=== PATIENT | female | born 1960 | race Caucasian/White ===

== ENCOUNTER 2022-12-14 17:52 | Inpatient (IN) | payer BC, OTHER ==
[2022-12-14] MEDS ORDERED: Sodium Chloride 0.9% 1,000 ML IV ONE ×2 (18:11→19:44)
[2022-12-14] MEDS ORDERED: cefTRIAXone 2 GM in Sodium Chloride 0.9% 100 ML IV ONE (19:00)
[2022-12-14 19:03] LABS: ESTIMATED GFR 23 mL/min (>60)
[2022-12-14] MEDS ORDERED: Norepinephrine 4 MG/4 ML SDV ONE (19:05)
[2022-12-14] MEDS ORDERED: Dextrose 5% in Water 250 ML ONE (19:05)
[2022-12-14] MEDS: Norepinephrine 4 MG in Dextrose 5% in Water 246 ML IV SCH ×2 (19:12)
[2022-12-14] MEDS: Sodium Chloride 0.9% 10 ML Syringe FLUSH PRN (19:46)
[2022-12-14 20:41] LABS: CORONAVIRUS COVID-19 NAA NEGATIVE (NEGATIVE)
[2022-12-15] MEDS ORDERED: Morphine 2 MG/ML SYRINGE IVPUSH PRN (00:42)
[2022-12-15] MEDS ORDERED: Albuterol/Ipratropium 3.0-0.5 MG/3 ML Neb Soln NEB PRN (00:42)
[2022-12-15] MEDS ORDERED: Ondansetron 4 MG/2 ML SDV IV PRN (00:42)
[2022-12-15] MEDS: Norepinephrine 4 MG in Dextrose 5% in Water 246 ML IV SCH ×4 (01:06→08:18)
[2022-12-15] MEDS: Heparin Sodium 5,000 Units/ML Vial SUBCUT SCH ×3 (01:11→18:56)
[2022-12-15] MEDS: Sodium Chloride 0.9% 1,000 ML IV SCH ×2 (02:24→14:46)
[2022-12-15] MEDS: Insulin Lispro 100 Unit/ML 3 ML KwikPen SUBCUT SCH ×6 (02:31→23:46)
[2022-12-15] MEDS: oxyCODONE 5 MG Tab PO PRN ×2 (04:50→20:43)
[2022-12-15 09:15] LABS: HEMOGLOBIN A1C 5.8 %
[2022-12-15] MEDS: Cyclobenzaprine 10 MG Tab PO SCH ×2 (14:45→20:43)
[2022-12-15] MEDS ORDERED: CLONAZEPAM 0.25 MG PO PRN (14:56)
[2022-12-15] MEDS: cefTRIAXone 2 GM in Sodium Chloride 0.9% 100 ML IV SCH (20:43)
[2022-12-15] MEDS: Dextrose 5%-0.45% NaCl 1,000 ML IV SCH (20:44)
[2022-12-16] MEDS: Heparin Sodium 5,000 Units/ML Vial SUBCUT SCH ×2 (02:17→10:30)
[2022-12-16] MEDS: Dextrose 5%-0.45% NaCl 1,000 ML IV SCH ×2 (09:16→23:17)
[2022-12-16] MEDS: Cyclobenzaprine 10 MG Tab PO SCH ×3 (09:16→20:39)
[2022-12-16] MEDS: Insulin Lispro 100 Unit/ML 3 ML KwikPen SUBCUT SCH ×4 (09:27→20:43)
[2022-12-16] MEDS: oxyCODONE 5 MG Tab PO PRN (09:44)
[2022-12-16] MEDS ORDERED: LORazepam 2 MG/ML SDV IVPUSH ONE (10:46)
[2022-12-16] MEDS: cefTRIAXone 2 GM in Sodium Chloride 0.9% 100 ML IV SCH (20:40)
[2022-12-17] MEDS: oxyCODONE 5 MG Tab PO PRN ×2 (06:30→12:30)
[2022-12-17] MEDS ORDERED: Piperacillin/Tazobactam 4.5 GM in Sodium Chloride 0.9% 100 ML IV ONE (07:00)
[2022-12-17] MEDS: Cyclobenzaprine 10 MG Tab PO SCH ×3 (08:16→21:18)
[2022-12-17] MEDS: Insulin Lispro 100 Unit/ML 3 ML KwikPen SUBCUT SCH ×4 (08:25→21:18)
[2022-12-17] MEDS ORDERED: ClonazePAM 0.5 MG Tab PO PRN (08:28)
[2022-12-17] MEDS: Meropenem 500 MG in Sodium Chloride 0.9% 100 ML IV SCH ×3 (08:33→21:23)
[2022-12-17] MEDS: metFORMIN 500 MG Tab PO SCH ×2 (08:42→18:42)
[2022-12-17] MEDS: DULoxetine 30 MG Cap PO SCH (09:19)
[2022-12-17] MEDS: Dextrose 5%-0.45% NaCl 1,000 ML IV SCH ×2 (11:37→22:38)
[2022-12-17] MEDS ORDERED: LORazepam 2 MG/ML SDV ONE (12:45)
[2022-12-17] MEDS ORDERED: LORazepam 2 MG/ML SDV IVPUSH ONE (13:00)
[2022-12-17] MEDS ORDERED: Piperacillin/Tazobactam 4.5 GM in Sodium Chloride 0.9% 100 ML IV SCH (13:00)
[2022-12-18] MEDS: Meropenem 500 MG in Sodium Chloride 0.9% 100 ML IV SCH ×4 (02:59→20:01)
[2022-12-18] MEDS: metFORMIN 500 MG Tab PO SCH ×2 (06:27→17:23)
[2022-12-18] MEDS: Insulin Lispro 100 Unit/ML 3 ML KwikPen SUBCUT SCH ×4 (07:31→20:21)
[2022-12-18] MEDS: Cyclobenzaprine 10 MG Tab PO SCH ×3 (08:21→20:02)
[2022-12-18] MEDS: DULoxetine 30 MG Cap PO SCH (08:21)
[2022-12-18] MEDS: oxyCODONE 5 MG Tab PO PRN ×2 (09:37→20:04)
[2022-12-18] MEDS ORDERED: Sodium Chloride 0.9% 500 ML IV ONE (09:46)
[2022-12-18] MEDS ORDERED: Furosemide 40 MG/4 ML VIAL IVPUSH STA (12:55)
[2022-12-19] MEDS: Meropenem 500 MG in Sodium Chloride 0.9% 100 ML IV SCH ×4 (03:14→20:02)
[2022-12-19] MEDS: metFORMIN 500 MG Tab PO SCH ×2 (06:46→17:35)
[2022-12-19] MEDS: Insulin Lispro 100 Unit/ML 3 ML KwikPen SUBCUT SCH ×4 (08:25→20:23)
[2022-12-19] MEDS: oxyCODONE 5 MG Tab PO PRN ×3 (08:32→18:43)
[2022-12-19] MEDS: Cyclobenzaprine 10 MG Tab PO SCH ×3 (08:33→20:10)
[2022-12-19] MEDS: Sodium Chloride 0.9% 10 ML Syringe FLUSH PRN (20:00)
[2022-12-19] MEDS: Topiramate 25 MG Tab PO PRN (20:11)
[2022-12-20] MEDS: oxyCODONE 5 MG Tab PO PRN ×3 (00:06→19:48)
[2022-12-20] MEDS: Meropenem 500 MG in Sodium Chloride 0.9% 100 ML IV SCH ×4 (03:10→20:04)
[2022-12-20] MEDS: metFORMIN 500 MG Tab PO SCH ×2 (06:25→17:14)
[2022-12-20] MEDS: Insulin Lispro 100 Unit/ML 3 ML KwikPen SUBCUT SCH ×4 (06:39→21:27)
[2022-12-20] MEDS ORDERED: Sodium Chloride 0.9% 500 ML IV SCH (07:30)
[2022-12-20] MEDS: Acetaminophen 325 MG Tab PO PRN ×2 (07:58→15:03)
[2022-12-20] MEDS: Cyclobenzaprine 10 MG Tab PO SCH ×3 (08:00→20:04)
[2022-12-20] MEDS ORDERED: Furosemide 20 MG/2 ML VIAL IVPUSH ONE ×2 (10:49→15:43)
[2022-12-20] MEDS ORDERED: Lidocaine 1% 5 ML VIAL ONE (10:51)
[2022-12-20] MEDS: Topiramate 25 MG Tab PO PRN (20:04)
[2022-12-21] MEDS: oxyCODONE 5 MG Tab PO PRN ×4 (01:50→21:37)
[2022-12-21] MEDS: Meropenem 500 MG in Sodium Chloride 0.9% 100 ML IV SCH ×4 (03:27→20:13)
[2022-12-21] MEDS: metFORMIN 500 MG Tab PO SCH ×2 (06:32→17:17)
[2022-12-21] MEDS: Insulin Lispro 100 Unit/ML 3 ML KwikPen SUBCUT SCH ×4 (06:33→20:25)
[2022-12-21] MEDS: Cyclobenzaprine 10 MG Tab PO SCH ×3 (09:38→20:14)
[2022-12-21] MEDS: Topiramate 25 MG Tab PO PRN (21:37)
[2022-12-22] MEDS: oxyCODONE 5 MG Tab PO PRN ×4 (01:46→23:18)
[2022-12-22] MEDS: Meropenem 500 MG in Sodium Chloride 0.9% 100 ML IV SCH ×4 (02:58→21:24)
[2022-12-22] MEDS: Insulin Lispro 100 Unit/ML 3 ML KwikPen SUBCUT SCH ×4 (06:36→21:25)
[2022-12-22] MEDS: metFORMIN 500 MG Tab PO SCH ×2 (06:36→16:56)
[2022-12-22] MEDS: Cyclobenzaprine 10 MG Tab PO SCH ×3 (08:10→21:24)
[2022-12-22] MEDS: Topiramate 25 MG Tab PO PRN (19:31)
[2022-12-23] MEDS: Meropenem 500 MG in Sodium Chloride 0.9% 100 ML IV SCH ×4 (02:46→20:02)
[2022-12-23] MEDS: Insulin Lispro 100 Unit/ML 3 ML KwikPen SUBCUT SCH ×4 (06:59→20:45)
[2022-12-23] MEDS ORDERED: Lubiprostone 24 MCG Cap PO SCH (07:00)
[2022-12-23] MEDS: Cyclobenzaprine 10 MG Tab PO SCH ×3 (08:05→20:01)
[2022-12-23] MEDS: Lubiprostone 24 MCG Cap PO SCH ×2 (08:06→18:04)
[2022-12-23] MEDS: metFORMIN 500 MG Tab PO SCH ×2 (08:07→17:38)
[2022-12-23] MEDS: oxyCODONE 5 MG Tab PO PRN ×2 (15:40→19:59)
[2022-12-23] MEDS: Fluconazole 100 MG Tab PO SCH (15:40)
[2022-12-23] MEDS ORDERED: Hydrocortisone 1% Crm 30 GM Tube TOP PRN (17:13)
[2022-12-23] MEDS: Topiramate 25 MG Tab PO PRN (20:01)
[2022-12-24] MEDS: oxyCODONE 5 MG Tab PO PRN ×2 (00:33→10:22)
[2022-12-24] MEDS ORDERED: Meropenem 500 MG SDV ONE ×2 (03:28→07:55)
[2022-12-24] MEDS: Meropenem 500 MG in Sodium Chloride 0.9% 100 ML IV SCH ×2 (03:56→08:10)
[2022-12-24] MEDS: metFORMIN 500 MG Tab PO SCH (08:09)
[2022-12-24] MEDS: Fluconazole 100 MG Tab PO SCH (08:09)
[2022-12-24] MEDS: Cyclobenzaprine 10 MG Tab PO SCH (08:09)
[2022-12-24] MEDS: Insulin Lispro 100 Unit/ML 3 ML KwikPen SUBCUT SCH (08:41)
[2022-12-24] MEDS: Lubiprostone 24 MCG Cap PO SCH (08:53)
[2022-12-24] MEDS ORDERED: LORazepam 1 MG Tab PO ONE (10:17)
[2022-12-24 13:18] VITALS: BP 115/63
[2022-12-24 13:26] VITALS: PULSE 92
== END 2022-12-24 14:45 | disposition swing bed (61) | DRG 871 ==
LOC: JD.ED 17:52 → JD.ICU 12-15 00:06
PROVIDERS: ADMIT Internal Medicine; ATTEND Internal Medicine
PROC: 3E03329 Introduction of Other Anti-infective into Peripheral Vein, Percutaneous Approach (ICD-10-PCS; 2022-12-15)
PROC: 30233N1 Transfusion of Nonautologous Red Blood Cells into Peripheral Vein, Percutaneous Approach (ICD-10-PCS; 2022-12-18)
PROC: 3E033XZ Introduction of Vasopressor into Peripheral Vein, Percutaneous Approach (ICD-10-PCS; 2022-12-18)
PROC: 30233N1 Transfusion of Nonautologous Red Blood Cells into Peripheral Vein, Percutaneous Approach (ICD-10-PCS; 2022-12-20)
PROC: 02HV33Z Insertion of Infusion Device into Superior Vena Cava, Percutaneous Approach (ICD-10-PCS; principal; 2022-12-24)
PROC: B548ZZA Ultrasonography of Superior Vena Cava, Guidance (ICD-10-PCS; 2022-12-24)
DX: A41.50 Gram-negative sepsis, unspecified (principal); R65.21 Severe sepsis with septic shock; N39.0 Urinary tract infection, site not specified; D62 Acute posthemorrhagic anemia; J90 Pleural effusion, not elsewhere classified; N17.9 Acute kidney failure, unspecified; J98.11 Atelectasis; Z16.24 Resistance to multiple antibiotics; Z68.41 Body mass index [BMI] 40.0-44.9, adult; L76.32 Postprocedural hematoma of skin and subcutaneous tissue following other procedure; R31.9 Hematuria, unspecified; F41.8 Other specified anxiety disorders; N20.0 Calculus of kidney; E87.70 Fluid overload, unspecified; E66.9 Obesity, unspecified; M79.7 Fibromyalgia; K52.9 Noninfective gastroenteritis and colitis, unspecified; Z20.822 Contact with and (suspected) exposure to COVID-19; E86.0 Dehydration; E11.22 Type 2 diabetes mellitus with diabetic chronic kidney disease; N18.9 Chronic kidney disease, unspecified; D69.6 Thrombocytopenia, unspecified; F32.9 Major depressive disorder, single episode, unspecified; Z79.899 Other long term (current) drug therapy; Z98.84 Bariatric surgery status; Z79.84 Long term (current) use of oral hypoglycemic drugs; Z91.041 Radiographic dye allergy status
CPT/HCPCS: 0241U; 36415; 36430; 36556; 36568; 36569; 51702; 70551; 70551-26; 71045; 71045-26; 71250; 71250-26; 80048; 80053; 81001; 82947; 83036; 83605; 83735; 84100; 85007; 85025; 85027; 85520; 85610; 86140; 86850; 86900; 86901; 86922; 87040; 87077; 87086; 87088; 87154; 87186; 90792; 93005; 93010; 93971-26-RT; 93971-RT; 96361; 96365; 96366; 96367; 97110-GP; 97116-GP; 97162-GP; 97166-GO; 97530-GO; 97530-GP; 99223; 99232; 99233; 99239; 99285; 99285-25; A9270-GY; J0696; J1644; J1940; J2060; J2185; J2270; J3490; J7030; J7042; J7060; P9016

== ENCOUNTER 2023-01-04 09:23 | Emergency (ER) | payer OTHER ==
[2023-01-04 09:48] VITALS: BP 138/81; PULSE 108
[2023-01-04] MEDS ORDERED: Sodium Chloride 0.9% 1,000 ML IV SCH (11:15)
[2023-01-04] MEDS ORDERED: Iopamidol 612 MG/ML 100 ML Bottle IVPUSH ONE (12:39)
[2023-01-04] MEDS ORDERED: Sodium Chloride 0.9% 10 ML Syringe FLUSH ONE (12:39)
== END 2023-01-04 19:16 ==
LOC: JD.ED 09:23
DX: S30.1XXA Contusion of abdominal wall, initial encounter (principal); E11.9 Type 2 diabetes mellitus without complications; E66.9 Obesity, unspecified; Z68.39 Body mass index [BMI] 39.0-39.9, adult; Z91.041 Radiographic dye allergy status; Z79.899 Other long term (current) drug therapy; Z79.84 Long term (current) use of oral hypoglycemic drugs; Z87.891 Personal history of nicotine dependence
CPT/HCPCS: 36415; 72193; 80053; 85025; 93926; 96360; 96361; 99285; J3490; J7030; Q9967

== ENCOUNTER 2023-05-30 07:07 | Emergency (ER) | payer OTHER ==
[2023-05-30] MEDS ORDERED: HYDROmorphone 0.5 MG/0.5 ML Syringe IVPUSH ONE (07:47)
[2023-05-30] MEDS ORDERED: Metoclopramide 10 MG/2 ML SDV IVPUSH ONE (07:48)
[2023-05-30] MEDS ORDERED: Acetaminophen 325 MG Tab PO ONE (07:50)
[2023-05-30] MEDS ORDERED: Sodium Chloride 0.9% 1,000 ML IV SCH (08:00)
[2023-05-30 08:40] LABS: BASOPHILS PERCENT AUTO 0.6 % (0.0-1.0); EOSINOPHILS ABSOLUTE AUTO 0.2 K/mm3 (0.0-0.4); EOSINOPHILS PERCENT AUTO 2.4 % (0.0-6.0); HEMATOCRIT 37.5 % (37.0-47.0); HEMOGLOBIN 12.6 gm/dl (12.0-16.0); IMMATURE GRAN ABSOLUTE AUTO 0.01 K/mm3 (0.00-0.05); IMMATURE GRAN PERCENT AUTO 0.2 % (0.0-0.4); LYMPHOCYTES ABSOLUTE AUTO 1.4 K/mm3 (1.0-4.8); LYMPHOCYTES PERCENT AUTO 22.8 % (24.0-44.0); MEAN CORPUSCULAR HEMOGLOBIN 30.2 pg (28.0-32.0); MEAN CORPUSCULAR HGB CONC 33.6 g/dl (32.0-36.0); MEAN CORPUSCULAR VOLUME 89.9 fl (83.0-99.0); MEAN PLATELET VOLUME 8.7 fl (9.4-12.3); MONOCYTES ABSOLUTE AUTO 0.6 K/mm3 (0.0-0.8); MONOCYTES PERCENT AUTO 9.7 % (0.0-8.0); NEUTROPHILS PERCENT AUTO 64.3 % (41.0-71.0); PLATELET COUNT,PLT 173 K/mm3 (150-400); RED BLOOD CELL COUNT 4.17 M/mm3 (4.10-5.30); WHITE BLOOD CELL COUNT,WBC 6.18 K/mm3 (3.9-11.3)
[2023-05-30 08:40] LABS: APPEARANCE,URINE CLEAR (Clear); BILIRUBIN,URINE NEGATIVE (Negative); COLOR,URINE YELLOW (Yellow); GLUCOSE,URINE NEGATIVE (Negative); KETONES,URINE NEGATIVE (Negative); LEUKOCYTE ESTERASE,URINE 3+ (Negative); NITRITE,URINE NEGATIVE (Negative); OCCULT BLOOD,URINE 2+ (Negative); PROTEIN,URINE NEGATIVE (Negative); UROBILINOGEN,URINE 0.2 (0.2-1.0)
[2023-05-30 08:55] LABS: INR 0.96; PROTHROMBIN TIME 10.3 SECONDS (9.7-12.0)
[2023-05-30] MEDS ORDERED: cefTRIAXone 2 GM in Sodium Chloride 0.9% 100 ML IV ONE (09:01)
[2023-05-30 09:05] LABS: A/G RATIO 0.8 (1-2); ALBUMIN 3.2 g/dl (3.4-5.0); BILIRUBIN TOTAL 0.5 mg/dL (0.2-1.0); C-REACTIVE PROTEIN 2.4 mg/dL (<1.0); CALCIUM 8.8 mg/dL (8.5-10.1); CREATININE 0.9 mg/dL (0.55-1.02); EST CRCL DRUG DOSING (CG) 57.57 mL/min; MAGNESIUM 1.7 mg/dL (1.8-2.4); PROTEIN TOTAL,TP 7.3 g/dl (6.4-8.2)
[2023-05-30 09:07] LABS: HEMOGLOBIN A1C 5.3 %
[2023-05-30 09:12] LABS: CREATINE KINASE,CK 73 U/L (26-192); TROPONIN I HIGH SENSITIVITY 5 pg/mL (<=51)
[2023-05-30 09:24] LABS: BACTERIA,URINE FEW /hpf (FEW); EPITHELIAL CELLS,URINE 0-5 /hpf (0-5); MUCUS,URINE FEW /hpf (FEW); RBC,URINE 20-30 /hpf (0-5); WBC,URINE 50-75 /hpf (0-5)
[2023-05-30 10:54] VITALS: BP 128/77; PULSE 93
== END 2023-05-30 10:40 | disposition home or self-care (01) ==
LOC: JD.ED 07:07
DX: J06.9 Acute upper respiratory infection, unspecified (principal); Z91.041 Radiographic dye allergy status
CPT/HCPCS: 36415; 71045; 80053; 81001; 82550; 82947; 83036; 83605; 83735; 84484; 85025; 85610; 86140; 87086; 87088; 87186; 87635; 93005; 96361; 96365; 96375; 99285; A9270; J0696; J1170; J2765; J3490; J7030; 93010; 99283; U0002

== ENCOUNTER 2024-01-01 13:26 | Inpatient (IN) | payer OTHER ==
[2024-01-01 14:08] LABS: HEMATOCRIT 37.4 % (37.0-47.0); HEMOGLOBIN 12.2 gm/dl (12.0-16.0); MEAN CORPUSCULAR HEMOGLOBIN 28.5 pg (28.0-32.0); MEAN CORPUSCULAR HGB CONC 32.6 g/dl (32.0-36.0); MEAN CORPUSCULAR VOLUME 87.4 fl (83.0-99.0); PLATELET COUNT,PLT 226 K/mm3 (150-400); RED BLOOD CELL COUNT 4.28 M/mm3 (4.10-5.30); WHITE BLOOD CELL COUNT,WBC 13.37 K/mm3 (3.9-11.3)
[2024-01-01 14:27] LABS: INR 0.99; PROTHROMBIN TIME 10.6 SECONDS (9.7-12.0)
[2024-01-01 14:30] LABS: A/G RATIO 0.9 (1-2); ALBUMIN 3.4 g/dl (3.4-5.0); BILIRUBIN TOTAL 0.7 mg/dL (0.2-1.0); BUN/CREATININE RATIO 16.7 (14-18); C-REACTIVE PROTEIN 8.93 mg/dL (<0.30); CALCIUM 8.8 mg/dL (8.5-10.1); CREATININE 1.2 mg/dL (0.55-1.02); EST CRCL DRUG DOSING (CG) 44.34 mL/min; PROTEIN TOTAL,TP 7.4 g/dl (6.4-8.2)
[2024-01-01 14:39] LABS: BAND PERCENT MAN 1 % (0-10); BASOPHILS PERCENT MAN 0 (0.1-1.2); EOSINOPHILS PERCENT MAN 1 % (0.7-5.8); LYMPHOCYTES % ATYPICAL MANUAL 2 %; LYMPHOCYTES PERCENT MAN 7 % (20-40); MONOCYTES PERCENT MAN 7 % (2-10)
[2024-01-01 14:41] LABS: PLATELET COUNT ESTIMATE ADEQUATE
[2024-01-01 14:47] LABS: APPEARANCE,URINE CLEAR (Clear); BILIRUBIN,URINE NEGATIVE (Negative); COLOR,URINE YELLOW (Yellow); GLUCOSE,URINE NEGATIVE (Negative); KETONES,URINE 1+ (Negative); LEUKOCYTE ESTERASE,URINE 1+ (Negative); NITRITE,URINE NEGATIVE (Negative); OCCULT BLOOD,URINE 2+ (Negative); PROTEIN,URINE 1+ (Negative); UROBILINOGEN,URINE 0.2 (0.2-1.0)
[2024-01-01] MEDS: Iopamidol 612 MG/ML 100 ML Bottle IVPUSH ONE (14:48)
[2024-01-01] MEDS: Sodium Chloride 0.9% 10 ML Syringe FLUSH PRN ×2 (14:57)
[2024-01-01] MEDS: Iopamidol 755 Mg/ML 100 ML Bottle IVPUSH ONE (15:09)
[2024-01-01] MEDS: Sodium Chloride 0.9% 45 ML IV SCH (15:10)
[2024-01-01 15:29] LABS: BACTERIA,URINE MANY /hpf (FEW); SQUAMOUS EPITHELIAL CELLS,UR 0-5 /hpf (0-5); WBC CLUMPS,URINE RARE /hpf (NOT SEEN)
[2024-01-01 15:30] LABS: MUCUS,URINE FEW /hpf (FEW)
[2024-01-01] MEDS: Ketorolac 15 MG/ML SDV IVPUSH ONE (16:25)
[2024-01-01] MEDS ORDERED: Promethazine 6.25 MG in Sodium Chloride 0.9% 50 ML IV PRN (17:02)
[2024-01-01] MEDS ORDERED: Morphine 2 MG/ML SYRINGE IVPUSH PRN (17:02)
[2024-01-01] MEDS: Meropenem 1 GM in Sodium Chloride 0.9% 100 ML IV ONE (17:30)
[2024-01-01] MEDS: Ertapenem 1 GM in Sodium Chloride 0.9% 50 ML IV ONE (17:43)
[2024-01-01] MEDS: Meropenem 1 GM in Sodium Chloride 0.9% 100 ML IV SCH (17:57)
[2024-01-01] MEDS: Sodium Chloride 0.9% 1,000 ML IV ONE (18:42)
[2024-01-01] MEDS: Enoxaparin 40 MG/0.4 ML Syringe SUBCUT SCH (19:38)
[2024-01-01] MEDS: Acetaminophen/HYDROcodone 325-5 MG Tab PO PRN (21:22)
[2024-01-02] MEDS: Meropenem 500 MG in Sodium Chloride 0.9% 100 ML IV SCH ×2 (01:21→08:45)
[2024-01-02] MEDS: Sodium Chloride 0.9% 1,000 ML IV SCH (01:22)
[2024-01-02 05:36] LABS: ANION GAP 13.7 (5-15); BASOPHILS PERCENT AUTO 0.3 % (0.0-1.0); CALCIUM 8.1 mg/dL (8.5-10.1); CREATININE 0.9 mg/dL (0.55-1.02); EOSINOPHILS PERCENT AUTO 0.2 % (0.0-6.0); EST CRCL DRUG DOSING (CG) 59.12 mL/min; HEMATOCRIT 32.3 % (37.0-47.0); IMMATURE GRAN ABSOLUTE AUTO 0.05 K/mm3 (0.00-0.05); IMMATURE GRAN PERCENT AUTO 0.4 % (0.0-0.4); LYMPHOCYTES ABSOLUTE AUTO 1.4 K/mm3 (1.0-4.8); LYMPHOCYTES PERCENT AUTO 12.7 % (24.0-44.0); MEAN CORPUSCULAR HEMOGLOBIN 28.3 pg (28.0-32.0); MEAN CORPUSCULAR HGB CONC 32.8 g/dl (32.0-36.0); MEAN CORPUSCULAR VOLUME 86.1 fl (83.0-99.0); MEAN PLATELET VOLUME 8.8 fl (9.4-12.3); MONOCYTES ABSOLUTE AUTO 1.2 K/mm3 (0.0-0.8); MONOCYTES PERCENT AUTO 10.9 % (0.0-8.0); NEUTROPHILS ABSOLUTE AUTO 8.5 K/mm3 (1.8-7.7); NEUTROPHILS PERCENT AUTO 75.5 % (41.0-71.0); PLATELET COUNT,PLT 188 K/mm3 (150-400); POTASSIUM,K 3.7 mEq/L (3.5-5.1); RED BLOOD CELL COUNT 3.75 M/mm3 (4.10-5.30); WHITE BLOOD CELL COUNT,WBC 11.19 K/mm3 (3.9-11.3)
[2024-01-02 05:45] LABS: HEMOGLOBIN 10.6 gm/dl (12.0-16.0)
[2024-01-02] MEDS: Insulin Lispro 100 Unit/ML 3 ML KwikPen SUBCUT SCH (07:34)
[2024-01-02] MEDS: Lactated Ringers 1,000 ML IV ONE (10:14)
[2024-01-02] MEDS: Acetaminophen 325 MG Tab PO PRN (15:05)
[2024-01-02] MEDS ORDERED: ClonazePAM 0.5 MG Tab PO PRN (17:54)
[2024-01-02] MEDS ORDERED: Non-Formulary Medication 1 Each (Tirzepatide [Mounjaro] 5 MG/0.5 ML Pen.Injctr) SUBCUT SCH (18:00)
[2024-01-02] MEDS: Cyclobenzaprine 10 MG Tab PO SCH (20:04)
[2024-01-03 05:36] LABS: BASOPHILS PERCENT AUTO 0.3 % (0.0-1.0); EOSINOPHILS ABSOLUTE AUTO 0.1 K/mm3 (0.0-0.4); EOSINOPHILS PERCENT AUTO 1.1 % (0.0-6.0); HEMATOCRIT 32.3 % (37.0-47.0); HEMOGLOBIN 10.4 gm/dl (12.0-16.0); IMMATURE GRAN ABSOLUTE AUTO 0.03 K/mm3 (0.00-0.05); IMMATURE GRAN PERCENT AUTO 0.3 % (0.0-0.4); MEAN CORPUSCULAR HEMOGLOBIN 28.4 pg (28.0-32.0); MEAN CORPUSCULAR HGB CONC 32.2 g/dl (32.0-36.0); MEAN CORPUSCULAR VOLUME 88.3 fl (83.0-99.0); MEAN PLATELET VOLUME 9.2 fl (9.4-12.3); MONOCYTES ABSOLUTE AUTO 1.3 K/mm3 (0.0-0.8); MONOCYTES PERCENT AUTO 14.2 % (0.0-8.0); NEUTROPHILS ABSOLUTE AUTO 5.7 K/mm3 (1.8-7.7); NEUTROPHILS PERCENT AUTO 62.1 % (41.0-71.0); PLATELET COUNT,PLT 202 K/mm3 (150-400); RED BLOOD CELL COUNT 3.66 M/mm3 (4.10-5.30); WHITE BLOOD CELL COUNT,WBC 9.18 K/mm3 (3.9-11.3)
[2024-01-03 06:05] LABS: ANION GAP 13.8 (5-15); BUN/CREATININE RATIO 18.8 (14-18); CALCIUM 8.6 mg/dL (8.5-10.1); CREATININE 0.8 mg/dL (0.55-1.02); EST CRCL DRUG DOSING (CG) 66.51 mL/min; POTASSIUM,K 3.8 mEq/L (3.5-5.1)
[2024-01-03] MEDS: DULoxetine 30 MG Cap PO SCH (08:39)
[2024-01-04 05:37] LABS: BASOPHILS PERCENT AUTO 0.3 % (0.0-1.0); EOSINOPHILS ABSOLUTE AUTO 0.2 K/mm3 (0.0-0.4); EOSINOPHILS PERCENT AUTO 3.1 % (0.0-6.0); HEMATOCRIT 32.7 % (37.0-47.0); HEMOGLOBIN 10.5 gm/dl (12.0-16.0); IMMATURE GRAN ABSOLUTE AUTO 0.01 K/mm3 (0.00-0.05); IMMATURE GRAN PERCENT AUTO 0.2 % (0.0-0.4); LYMPHOCYTES PERCENT AUTO 34.3 % (24.0-44.0); MEAN CORPUSCULAR HEMOGLOBIN 27.7 pg (28.0-32.0); MEAN CORPUSCULAR HGB CONC 32.1 g/dl (32.0-36.0); MEAN CORPUSCULAR VOLUME 86.3 fl (83.0-99.0); MEAN PLATELET VOLUME 9.3 fl (9.4-12.3); MONOCYTES ABSOLUTE AUTO 0.9 K/mm3 (0.0-0.8); MONOCYTES PERCENT AUTO 14.9 % (0.0-8.0); NEUTROPHILS ABSOLUTE AUTO 2.7 K/mm3 (1.8-7.7); NEUTROPHILS PERCENT AUTO 47.2 % (41.0-71.0); PLATELET COUNT,PLT 209 K/mm3 (150-400); RED BLOOD CELL COUNT 3.79 M/mm3 (4.10-5.30); WHITE BLOOD CELL COUNT,WBC 5.78 K/mm3 (3.9-11.3)
[2024-01-04 05:53] LABS: ANION GAP 9.9 (5-15); BUN/CREATININE RATIO 17.5 (14-18); CALCIUM 8.5 mg/dL (8.5-10.1); CREATININE 0.8 mg/dL (0.55-1.02); EST CRCL DRUG DOSING (CG) 66.51 mL/min; POTASSIUM,K 3.9 mEq/L (3.5-5.1)
[2024-01-04] MEDS ORDERED: Ertapenem 1 GM in Sodium Chloride 0.9% 50 ML IV SCH (14:00)
[2024-01-04] MEDS: Meropenem 1 GM in Sodium Chloride 0.9% 100 ML IV SCH (15:56)
[2024-01-05 05:08] LABS: BASOPHILS PERCENT AUTO 0.4 % (0.0-1.0); EOSINOPHILS ABSOLUTE AUTO 0.2 K/mm3 (0.0-0.4); EOSINOPHILS PERCENT AUTO 3.9 % (0.0-6.0); HEMATOCRIT 33.6 % (37.0-47.0); HEMOGLOBIN 10.9 gm/dl (12.0-16.0); IMMATURE GRAN ABSOLUTE AUTO 0.02 K/mm3 (0.00-0.05); IMMATURE GRAN PERCENT AUTO 0.4 % (0.0-0.4); LYMPHOCYTES ABSOLUTE AUTO 2.1 K/mm3 (1.0-4.8); MEAN CORPUSCULAR HEMOGLOBIN 28.1 pg (28.0-32.0); MEAN CORPUSCULAR HGB CONC 32.4 g/dl (32.0-36.0); MEAN CORPUSCULAR VOLUME 86.6 fl (83.0-99.0); MEAN PLATELET VOLUME 9.1 fl (9.4-12.3); MONOCYTES ABSOLUTE AUTO 0.7 K/mm3 (0.0-0.8); NEUTROPHILS ABSOLUTE AUTO 2.5 K/mm3 (1.8-7.7); NEUTROPHILS PERCENT AUTO 44.3 % (41.0-71.0); PLATELET COUNT,PLT 243 K/mm3 (150-400); RED BLOOD CELL COUNT 3.88 M/mm3 (4.10-5.30)
[2024-01-05 05:26] LABS: BUN/CREATININE RATIO 17.8 (14-18); C-REACTIVE PROTEIN 4.18 mg/dL (<0.30); CALCIUM 8.6 mg/dL (8.5-10.1); CREATININE 0.9 mg/dL (0.55-1.02); EST CRCL DRUG DOSING (CG) 59.12 mL/min; MAGNESIUM 2.1 mg/dL (1.8-2.4)
[2024-01-05] MEDS: Meropenem 1 GM in Sodium Chloride 0.9% 100 ML IV SCH (07:33)
[2024-01-05] MEDS: Ertapenem 1 GM in Sodium Chloride 0.9% 50 ML IV SCH (11:04)
[2024-01-05 14:10] VITALS: BP 151/82; PULSE 87
[2024-01-05] MEDS ORDERED: Ertapenem 1 GM in Sodium Chloride 0.9% 50 ML IV SCH (16:00)
== END 2024-01-05 13:01 | disposition home or self-care (01) | DRG 862 ==
LOC: JD.ED 13:26 → JD.MS 16:58
PROVIDERS: ADMIT Student in an Organized Health Care Education/Training Program; ATTEND Internal Medicine
DX: T81.44XA Sepsis following a procedure, initial encounter (principal); A41.4 Sepsis due to anaerobes; R65.20 Severe sepsis without septic shock; N39.0 Urinary tract infection, site not specified; Z68.41 Body mass index [BMI] 40.0-44.9, adult; N17.9 Acute kidney failure, unspecified; K56.1 Intussusception; Z16.12 Extended spectrum beta lactamase (ESBL) resistance; H54.7 Unspecified visual loss; M54.2 Cervicalgia; G89.29 Other chronic pain; F32.A Depression, unspecified; N20.0 Calculus of kidney; E66.01 Morbid (severe) obesity due to excess calories; M79.7 Fibromyalgia; F41.9 Anxiety disorder, unspecified; E11.69 Type 2 diabetes mellitus with other specified complication; Z91.041 Radiographic dye allergy status; Z79.84 Long term (current) use of oral hypoglycemic drugs; Z79.899 Other long term (current) drug therapy; Z98.84 Bariatric surgery status; Z98.891 History of uterine scar from previous surgery; Z98.890 Other specified postprocedural states
CPT/HCPCS: 36415; 74177; 74177-26; 80048; 80053; 81001; 82947; 83605; 83735; 85007; 85025; 85027; 85610; 86140; 87040; 87086; 87088; 87186; 96374; 99223; 99232; 99239; 99284-25; 99285; A9270-GY; J1335; J1650; J1885; J2185; J3490; J7030; J7120; Q9967

== ENCOUNTER 2024-03-23 17:56 | Inpatient (IN) | payer OTHER ==
[2024-03-23 18:35] LABS: HEMATOCRIT 35.5 % (37.0-47.0); HEMOGLOBIN 11.7 gm/dl (12.0-16.0); MEAN CORPUSCULAR VOLUME 87.9 fl (83.0-99.0); MEAN PLATELET VOLUME 9.2 fl (9.4-12.3); PLATELET COUNT,PLT 233 K/mm3 (150-400); RED BLOOD CELL COUNT 4.04 M/mm3 (4.10-5.30); WHITE BLOOD CELL COUNT,WBC 8.47 K/mm3 (3.9-11.3)
[2024-03-23 18:54] LABS: A/G RATIO 0.7 (1-2); ALBUMIN 3.1 g/dl (3.4-5.0); ANION GAP 15.3 (5-15); BILIRUBIN TOTAL 0.6 mg/dL (0.2-1.0); BUN/CREATININE RATIO 20.8 (14-18); C-REACTIVE PROTEIN 7.98 mg/dL (<0.30); CALCIUM 8.7 mg/dL (8.5-10.1); CREATININE 1.2 mg/dL (0.55-1.02); EST CRCL DRUG DOSING (CG) 42.62 mL/min; POTASSIUM,K 4.3 mEq/L (3.5-5.1); PROTEIN TOTAL,TP 7.6 g/dl (6.4-8.2)
[2024-03-23 18:57] LABS: LACTIC ACID 1.2 mmol/L (0.4-2.0)
[2024-03-23 19:05] LABS: BAND PERCENT MAN 0 % (0-10); BASOPHILS PERCENT MAN 1 (0.1-1.2); EOSINOPHILS PERCENT MAN 2 % (0.7-5.8); LYMPHOCYTES % ATYPICAL MANUAL 0 %; LYMPHOCYTES PERCENT MAN 7 % (20-40); MONOCYTES PERCENT MAN 8 % (2-10); PLATELET COUNT ESTIMATE ADEQUATE
[2024-03-23 19:07] LABS: INR 0.97; PROTHROMBIN TIME 10.3 SECONDS (9.7-12.0)
[2024-03-23] MEDS: Sodium Chloride 0.9% 1,000 ML IV ONE (19:07)
[2024-03-23] MEDS: cefTRIAXone 2 GM in Sodium Chloride 0.9% 100 ML IV ONE (19:07)
[2024-03-23] MEDS: Sodium Chloride 0.9% 10 ML Syringe FLUSH PRN (19:09)
[2024-03-23 19:36] LABS: APPEARANCE,URINE SLT CLOUDY (Clear); BILIRUBIN,URINE NEGATIVE (Negative); COLOR,URINE YELLOW (Yellow); GLUCOSE,URINE NEGATIVE (Negative); KETONES,URINE 1+ (Negative); LEUKOCYTE ESTERASE,URINE 2+ (Negative); NITRITE,URINE POSITIVE (Negative); OCCULT BLOOD,URINE 2+ (Negative); PH,URINE 5.5 (5.0-8.0); PROTEIN,URINE 2+ (Negative); UROBILINOGEN,URINE 0.2 (0.2-1.0)
[2024-03-23 19:45] LABS: BACTERIA,URINE MANY /hpf (FEW); MUCUS,URINE FEW /hpf (FEW); SQUAMOUS EPITHELIAL CELLS,UR 0-5 /hpf (0-5); WBC CLUMPS,URINE FEW /hpf (NOT SEEN); WBC,URINE >100 /hpf (0-5)
[2024-03-23] MEDS: Meropenem 1 GM in Sodium Chloride 0.9% 100 ML IV ONE (19:45)
[2024-03-23] MEDS ORDERED: Acetaminophen 325 MG Tab PO PRN (20:39)
[2024-03-23] MEDS ORDERED: Ondansetron 4 MG Tab.DIS PO PRN (20:39)
[2024-03-23] MEDS ORDERED: Non-Formulary Medication 1 Each (Ascorbic Acid [Vitamin C] 250 MG Tablet) PO SCH (21:00)
[2024-03-23] MEDS: Ascorbic Acid 500 MG Tab PO SCH (23:16)
[2024-03-24] MEDS ORDERED: Meropenem 1 GM in Sodium Chloride 0.9% 100 ML IV SCH (03:45)
[2024-03-24] MEDS ORDERED: SODIUM CHLORIDE 0.9% IV SCH (04:00)
[2024-03-24] MEDS ORDERED: MEROPENEM IV SCH (04:00)
[2024-03-24 04:48] LABS: BASOPHILS PERCENT AUTO 0.3 % (0.0-1.0); EOSINOPHILS ABSOLUTE AUTO 0.1 K/mm3 (0.0-0.4); EOSINOPHILS PERCENT AUTO 0.8 % (0.0-6.0); IMMATURE GRAN ABSOLUTE AUTO 0.02 K/mm3 (0.00-0.05); IMMATURE GRAN PERCENT AUTO 0.2 % (0.0-0.4); LYMPHOCYTES ABSOLUTE AUTO 2.5 K/mm3 (1.0-4.8); LYMPHOCYTES PERCENT AUTO 27.2 % (24.0-44.0); MEAN CORPUSCULAR HEMOGLOBIN 28.5 pg (28.0-32.0); MEAN CORPUSCULAR HGB CONC 32.3 g/dl (32.0-36.0); MEAN CORPUSCULAR VOLUME 88.3 fl (83.0-99.0); MEAN PLATELET VOLUME 9.3 fl (9.4-12.3); MONOCYTES ABSOLUTE AUTO 1.4 K/mm3 (0.0-0.8); MONOCYTES PERCENT AUTO 15.9 % (0.0-8.0); NEUTROPHILS PERCENT AUTO 55.6 % (41.0-71.0); PLATELET COUNT,PLT 219 K/mm3 (150-400); RED BLOOD CELL COUNT 3.51 M/mm3 (4.10-5.30); WHITE BLOOD CELL COUNT,WBC 9.07 K/mm3 (3.9-11.3)
[2024-03-24] MEDS: Meropenem 0.5 GM in Sodium Chloride 0.9% 100 ML IV SCH (05:23)
[2024-03-24] MEDS: Non-Formulary Medication 1 Each (Methenamine Hippurate 1 GM Tablet) PO SCH (06:39)
[2024-03-24 07:31] LABS: ANION GAP 10.1 (5-15); CALCIUM 8.6 mg/dL (8.5-10.1); CREATININE 1.1 mg/dL (0.55-1.02); EST CRCL DRUG DOSING (CG) 46.49 mL/min; POTASSIUM,K 4.1 mEq/L (3.5-5.1)
[2024-03-24] MEDS: Enoxaparin 40 MG/0.4 ML Syringe SUBCUT SCH (08:51)
[2024-03-24] MEDS ORDERED: Non-Formulary Medication 1 Each (Methenamine Hippurate 1 GM Tablet) PO SCH (09:00)
[2024-03-24] MEDS: DULoxetine 30 MG Cap PO SCH (13:04)
[2024-03-24] MEDS: Meropenem 500 MG in Sodium Chloride 0.9% 100 ML IV SCH (13:04)
[2024-03-24] MEDS: Sodium Chloride 0.9% 1,000 ML IV SCH (13:05)
[2024-03-25 05:34] LABS: BASOPHILS PERCENT AUTO 0.7 % (0.0-1.0); EOSINOPHILS ABSOLUTE AUTO 0.1 K/mm3 (0.0-0.4); EOSINOPHILS PERCENT AUTO 2.1 % (0.0-6.0); HEMATOCRIT 33.1 % (37.0-47.0); HEMOGLOBIN 10.8 gm/dl (12.0-16.0); IMMATURE GRAN ABSOLUTE AUTO 0.03 K/mm3 (0.00-0.05); IMMATURE GRAN PERCENT AUTO 0.5 % (0.0-0.4); LYMPHOCYTES ABSOLUTE AUTO 1.8 K/mm3 (1.0-4.8); MEAN CORPUSCULAR HGB CONC 32.6 g/dl (32.0-36.0); MEAN CORPUSCULAR VOLUME 88.7 fl (83.0-99.0); MEAN PLATELET VOLUME 9.4 fl (9.4-12.3); MONOCYTES ABSOLUTE AUTO 1.1 K/mm3 (0.0-0.8); MONOCYTES PERCENT AUTO 17.3 % (0.0-8.0); NEUTROPHILS PERCENT AUTO 49.4 % (41.0-71.0); PLATELET COUNT,PLT 255 K/mm3 (150-400); RED BLOOD CELL COUNT 3.73 M/mm3 (4.10-5.30); WHITE BLOOD CELL COUNT,WBC 6.14 K/mm3 (3.9-11.3)
[2024-03-25] MEDS: Sodium Chloride 0.9% 1,000 ML IV SCH (12:29)
[2024-03-25 12:56] LABS: ANION GAP 11.3 (5-15); BUN/CREATININE RATIO 18.9 (14-18); CALCIUM 8.4 mg/dL (8.5-10.1); CREATININE 0.9 mg/dL (0.55-1.02); EST CRCL DRUG DOSING (CG) 56.82 mL/min; POTASSIUM,K 4.3 mEq/L (3.5-5.1)
[2024-03-25 16:27] VITALS: BP 134/73; PULSE 84
== END 2024-03-25 16:33 | disposition home or self-care (01) | DRG 690 ==
LOC: JD.ED 17:56 → JD.MS 20:39
PROVIDERS: ADMIT Family Medicine; ATTEND Family Medicine
DX: N39.0 Urinary tract infection, site not specified (principal); N17.9 Acute kidney failure, unspecified; Z68.41 Body mass index [BMI] 40.0-44.9, adult; H54.7 Unspecified visual loss; M79.7 Fibromyalgia; M54.2 Cervicalgia; G89.29 Other chronic pain; F32.A Depression, unspecified; E11.9 Type 2 diabetes mellitus without complications; E66.9 Obesity, unspecified; N18.31 Chronic kidney disease, stage 3a; E86.0 Dehydration; D50.9 Iron deficiency anemia, unspecified; D63.1 Anemia in chronic kidney disease; B96.20 Unspecified Escherichia coli [E. coli] as the cause of diseases classified elsewhere; Z79.84 Long term (current) use of oral hypoglycemic drugs; Z79.899 Other long term (current) drug therapy; Z87.442 Personal history of urinary calculi; Z98.84 Bariatric surgery status; Z98.891 History of uterine scar from previous surgery; Z98.890 Other specified postprocedural states
CPT/HCPCS: 36415; 71045; 71045-26; 80048; 80053; 81001; 82947; 83605; 85007; 85025; 85027; 85610; 86140; 87040; 87086; 87088; 87186; 94762; 96365; 96367; 99283; 99285-25; A9270-GY; J0696; J1650; J2185; J3490; J7030